=== PATIENT | male | born 1980 | race Caucasian/White ===

== ENCOUNTER 2019-10-19 21:03 | Emergency (ER) | payer BC, OTHER ==
[2019-10-19] MEDS ORDERED: DIPHTH,PERTUSS(ACELL),TET 0.5 ML DISP.SYRIN IM ONE ×2 (21:13→21:27)
--- NOTE | 2019-10-19 21:13 | PDOC ---
Rapid Medical Evaluation Time Seen by Provider: 10/19/19 21:09 Medical Evaluation: 10/19/19 21:09 I have performed a brief in-person evaluation of this patient. CC: lac to right thumb s/p striking glass. Right hand dominant PE: 4cm flap laceration to dorsum of right thumb. FROM against resistance. Orders: Boostrix Patient will proceed to ED for further evaluation. Discharge Disposition - Diagnosis Thumb laceration - Referrals - Patient Instructions - Post Discharge Activity
[2019-10-19 21:14] VITALS: BP 123/74; PULSE 89; TEMP 97.5; BMI 27.0
--- NOTE | 2019-10-19 21:21 | PDOC ---
History of Present Illness - General Chief Complaint: Injury Stated Complaint: R THUMB LACERATION Time Seen by Provider: 10/19/19 21:09 History Source: Patient - History of Present Illness Initial Comments: 10/19/19 21:30 39-year-old male complaining of laceration to the right thumb reports cutting with broken glass from frame. Patient has full ROM to right thumb with sensation to the distal end. Patient does not recall the last time he had tetanus vaccine. No past medical history Past History - Medical History Allergies/Adverse Reactions: Allergies Allergy/AdvReac Type Severity Reaction Status Date / Time No Known Allergies Allergy Verified 10/19/19 21:13 Home Medications: Ambulatory Orders Cephalexin Monohydrate [Keflex -] 250 mg PO Q8H #21 capsule 10/19/19 COPD: No - Psycho-Social/Smoking History Smoking History: Former smoker Have you smoked in the past 12 months: No If you are a former smoker, when did you quit?: 2019 Information on smoking cessation initiated: No - Substance Abuse Hx (Audit-C & DAST Scrn) How often the patient has a drink containing alcohol: Never Score: In Men: 4 or > Positive; In Women: 3 or > Positive: 0 Screen Result (Pos requires Nsg. Audit-10AR): Negative In the last yr the pt used illegal drug/Rx for NonMed reason: No Score: Yes response is considered Positive: 0 Screen Result (Positive result requires Nsg. DAST-10): Negative Review of Systems - Review of Systems Able to Perform ROS?: Yes Is the patient limited German proficient: No Integumentary: Yes: Other (right thumb laceration) *Physical Exam - Vital Signs Last Vital Signs Temp Pulse Resp BP Pulse Ox 97.5 F L 89 19 123/74 98 10/19/19 21:09 10/19/19 21:09 10/19/19 21:09 10/19/19 21:09 10/19/19 21:09 - Physical Exam General Appearance: Yes: Appropriately Dressed Extremity: positive: Other (~ 3 cm laceration to right thumb. irregular shaped. full rom . + distal sensation) Integumentary: positive: Normal Color, Dry, Warm Neurologic: positive: Fully Oriented, Alert, Normal Mood/Affect ED Progress Note - Progress Note Progress Note: 10/19/19 21:37 A: right thumb laceration P: xray: r/o foreign body 10/19/19 22:12 no foreign body seen. official read pending Medical Decision Making - Medical Decision Making 10/19/19 23:05 Employee stuck with suture needle. patient consented to labs hepatitis / hiv panel sent 10/20/19 01:28 HIV negative. hepatitis panel. patient is aware of this Discharge - Discharge Information Problems reviewed: Yes Clinical Impression/Diagnosis: Thumb laceration Qualifiers: Encounter type: initial encounter Damage to nail status: without damage Foreign body presence: unspecified Laterality: right Qualified Code(s): S61.011A - Laceration without foreign body of right thumb without damage to nail, initial encounter Condition: Stable Disposition: HOME - Additional Discharge Information Prescriptions: Cephalexin Monohydrate [Keflex -] 250 mg PO Q8H #21 capsule - Follow up/Referral Referrals: Jhonny Card [Primary Care Provider] - Marco Khan MD [Staff Physician] - Call tomorrow Lobo Mar MD [Staff Physician] - Call tomorrow - Patient Discharge Instructions Patient Printed Discharge Instructions: DI for Laceration Repair -- Complex Suture Additional Instructions: Keep area clean dry and intact Keep dressing on until tomorrow If any increased bleeding through the dressing return immediately to emergency department Keep area clean dry and intact bacitracin x3 days, then let it dry out Please return in 10 days for suture removal. Please return immediately to emergency department with any increased redness, swelling, signs of infection - Post Discharge Activity Work/Back to School Note: Back to Work
[2019-10-19] MEDS ORDERED: ACETAMINOPHEN 325 MG TABLET (FP) PO ONE (21:23)
[2019-10-19] MEDS ORDERED: ACETAMINOPHEN 325 MG TABLET (FP) ONE (21:27)
--- NOTE | 2019-10-19 23:06 | PDOC ---
*Physical Exam - Vital Signs Last Vital Signs Temp Pulse Resp BP Pulse Ox 97.5 F L 89 19 123/74 98 10/19/19 21:09 10/19/19 21:09 10/19/19 21:09 10/19/19 21:09 10/19/19 21:09 ED Treatment Course - Medications Given in the ED: ED Medications Discontinued Medications Generic Name Dose Route Start Last Admin Trade Name Chilo PRN Reason Stop Dose Admin Acetaminophen 650 mg 10/19/19 21:23 10/19/19 21:47 Tylenol - PO 10/19/19 21:24 650 mg ONCE ONE Administration Diphtheria/Tetanus/Acell Pertussis 0.5 ml 10/19/19 21:13 10/19/19 21:46 Boostrix - IM 10/19/19 21:14 0.5 ml .ONCE ONE Administration Discharge - Discharge Information Problems reviewed: Yes Clinical Impression/Diagnosis: Thumb laceration Qualifiers: Encounter type: initial encounter Damage to nail status: without damage Foreign body presence: unspecified Laterality: right Qualified Code(s): S61.011A - Laceration without foreign body of right thumb without damage to nail, initial encounter Condition: Stable Disposition: HOME - Additional Discharge Information Prescriptions: Cephalexin Monohydrate [Keflex -] 250 mg PO Q8H #21 capsule - Follow up/Referral Referrals: Lobo Mar MD [Staff Physician] - Call tomorrow Jhonny Card [Primary Care Provider] - Marco Khan MD [Staff Physician] - Call tomorrow - Patient Discharge Instructions Patient Printed Discharge Instructions: DI for Laceration Repair -- Complex Suture Additional Instructions: Keep area clean dry and intact Keep dressing on until tomorrow If any increased bleeding through the dressing return immediately to emergency department Keep area clean dry and intact bacitracin x3 days, then let it dry out Please return in 10 days for suture removal. Please return immediately to emergency department with any increased redness, swelling, signs of infection - Post Discharge Activity Work/Back to School Note: Back to Work Procedures - Laceration/Wound Repair Right Dorsal 1st digit Wound Length: 5.0 to 7.5 cm Wound Explored: clean, no foreign body present Wound's Depth, Shape: flap Irrigated w/ Saline: Yes Betadine Prep: No Anesthesia: 1% Lidocaine Amount of Anesthetic (ccs): 3 Wound Repaired With: Sutures Suture Size/Type: 4:0, proline Number of Sutures: 15 (simple) Layer Closure: No Sterile Dressing Applied: Yes Splint Applied: No Sling Applied: No
== END 2019-10-19 23:19 | disposition home or self-care (01) ==
LOC: JER 21:03
PROC: 0HQFXZZ Repair Right Hand Skin, External Approach (ICD-10-PCS; principal; 2019-10-19)
PROC: 3E0234Z Introduction of Serum, Toxoid and Vaccine into Muscle, Percutaneous Approach (ICD-10-PCS; 2019-10-19)
DX: S61.011A Laceration without foreign body of right thumb without damage to nail, initial encounter (principal)
CPT/HCPCS: 36415; 73130-TC-RT-FY; 73140-TC-RT-FY; 86317; 86704; 86706; 86803; 87340; 87389; 90715; 99285-25